=== PATIENT | female | born 1955 | race Caucasian/White ===

== ENCOUNTER 2019-09-09 11:37 | Inpatient (IN) | payer MEDICARE ==
[2019-09-09] MEDS ORDERED: IPRATROPIUM/ALBUTEROL 0.5-2.5 MG/3 ML AMPUL NEB ONE ×2 (12:14→15:03)
[2019-09-09] MEDS ORDERED: METHYLPREDNISOLONE INJ 125 MG/2 ML SDV IV ONE (12:14)
--- NOTE | 2019-09-09 12:37 | RADIOLOGY REPORT (SQ) ---
EXAM DESCRIPTION: CHEST SINGLE VIEW IMAGES COMPLETED DATE/TIME: 09/09/2019 12:26 pm REASON FOR STUDY: COPD exacerbation COMPARISON: None. EXAM PARAMETERS: NUMBER OF VIEWS: One view. TECHNIQUE: Single frontal radiographic view of the chest acquired. RADIATION DOSE: NA LIMITATIONS: None. FINDINGS: LUNGS AND PLEURA: There is bilateral interstitial airspace disease most marked in the lung bases. Superimposed interstitial pneumonitis or edema cannot be excluded. Possible small left effu arabella. MEDIASTINUM AND HILAR STRUCTURES: No masses. Contour normal. HEART AND VASCULAR STRUCTURES: Heart is enlarged. Mild central vascular prominence. BONES: No acute findings. HARDWARE: None in the chest. OTHER: No other significant finding. IMPRESSION: COPD with probable chronic interstitial lung disease. Superimposed interstitial pneumon itis or edema cannot be excluded. TECHNICAL DOCUMENTATION: JOB ID: [id number] 2010 [employer]- All Rights Reserved Reading location - IP/workstation name: [email or web address]
--- NOTE | 2019-09-09 13:12 | ER Document Report ---
Entered by GABRIEL FERNANDEZ SCRIBE 09/09/19 1209 Acting as scribe for:VAISHALI VILLA MD ED Respiratory Problem - General Mode of Arrival: Ambulatory Information source: Patient <VAISHALI VILLA - Last Filed: 09/09/19 14:23> <DARWIN KINCAID - Last Filed: 09/09/19 16:07> - General Stated Complaint: DIFFICULTY BREATHING Time Seen by Provider: 09/09/19 11:52 Primary Care Provider: EMMANUEL KHAN PA-C [Primary Care Provider] - Follow up as needed Notes: This 64 year old female patient presents to the emergency department today with complaints of shortness of breath which began last week. Patient was prescribed doxycycline by an urgent care last week due to "fluid in her lungs". Patient states she currently feels like the last time when she had double pneumonia. She has been coughing quite a bit, and has a thick yellowish sputum. Patient his a history of COPD, severe peripheral vascular disease and does continue to smoke. Patient also has a past medical history of CHF. Patient is normally on 3 L O2 nasal cannula at home, but has increased oxygen requirement now. She did return to the [facility] urgent care, and was sent to the emergency room for further evaluation. Patient reports she moved to this area from [place] about 2 weeks ago, and has not established with a primary care provider. (VAISHALI VILLA) - Related Data Allergies/Adverse Reactions: codeine Allergy (Verified 09/09/19 12:46) erythromycin base Allergy (Verified 09/09/19 12:46) Iodinated Contrast Media Allergy (Verified 09/09/19 12:46) Past Medical History - General Information source: Patient - Social History Smoking Status: Current Every Day Smoker Cigarette use (# per day): Yes - 1/3 ppd Frequency of alcohol use: None Drug Abuse: None Lives with: Family Family History: Reviewed & Not Pertinent - Past Medical History Cardiac Medical History: Reports: Hx Congestive Heart Failure, Hx Coronary Artery Disease, Hx Hypercholesterolemia, Other - Hx Hypotension Pulmonary Medical History: Reports: Hx COPD Past Surgical History: Reports: Hx Hysterectomy, Hx Vascular Surgery - Bilateral fem-pop bypass. Left subclavian artery stent., Other - Brachial artery bypass <VAISAHLI VILLA - Last Filed: 09/09/19 14:23> Review of Systems - Review of Systems Constitutional: denies: Fever EENT: No symptoms reported Cardiovascular: No symptoms reported Respiratory: See HPI, Cough, Hurts to breathe, Short of breath, Sputum, Wheezing Gastrointestinal: No symptoms reported Genitourinary: No symptoms reported Female Genitourinary: No symptoms reported Musculoskeletal: No symptoms reported Skin: No symptoms reported Hematologic/Lymphatic: No symptoms reported Neurological/Psychological: No symptoms reported -: Yes All other systems reviewed and negative <VAISHALI VILLA - Last Filed: 09/09/19 14:23> Physical Exam <VAISHALI VILLA - Last Filed: 09/09/19 14:23> - Vital signs Vitals: Temp Pulse Resp BP Pulse Ox 97.5 F 110 H 18 122/75 95 09/09/19 11:43 09/09/19 11:43 09/09/19 11:43 09/09/19 11:43 09/09/19 11:43 - Notes Notes: Physical Exam: General: Alert, appears much older than stated age. HEENT: Normocephalic. Atraumatic. PERRL. Extraocular movements intact. Oropharynx clear. Neck: Supple. Non-tender. Respiratory: Mild respiratory distress. Patient is a little tachypneic. Wheezing rhonchi bilaterally. Mild retractions. Sputum has a very thick wright-yellow appearance. Cardiovascular: Regular tachycardia. Abdominal: Normal Inspection. Non-tender. No distension. Normal Bowel Sounds. Back: No gross abnormalities. Extremities: Moves all four extremities. Upper extremities: Normal inspection. Normal ROM. Lower extremities: Trace pitting edema to right lower extremity consistent with saphenous vein harvest. Neurological: Normal cognition. AAOx4. Normal speech. Psychological: Normal affect. Normal Mood. Skin: Warm. Dry. Normal color. (VAISHALI VILLA) Course - Laboratory Result Diagrams: 09/09/19 12:00 09/09/19 12:00 - Diagnostic Test Radiology reviewed: Image reviewed, Reports reviewed - Chest x-ray shows COPD with probable chronic interstitial lung disease. Superimposed interstitial pneumonitis or edema cannot be excluded. There is cardiac enlargement with mild central vascular prominence. There are no comparison chest x-rays in the system. - EKG Interpretation by Sc EKG shows normal: Sinus rhythm, [place], Intervals, QRS Complexes. abnormal: ST-T Waves - Anterolateral ST depression Rate: Tachycardia - 104 Voltage: Consistant with LVH P Waves: LAE When compared to previous EKG there are: Previous EKG unavailable - Transfer of Care Care transferred to following provider: Dr. Kincaid <VAISHALI VILLA - Last Filed: 09/09/19 14:23> - Laboratory Result Diagrams: 09/09/19 14:22 09/09/19 12:00 <DARWIN KINCAID - Last Filed: 09/09/19 16:07> - Re-evaluation Re-evalutation: 09/09/19 16:02 MDM Delightful 64 year old female received in handoff from Dr. Villa awaiting some studies. She was seen and examined by me. All 3 cell lines are a bit depressed and it is unclear if this is myelodysplasia or a result of this acute illness she is having. She is showing an increased oxygen requirement - presently 5 liters - and has moderate cardiomegaly on her chest xray. Due to her oxygen requirement and lab abnormalities along with her seemingly failing outpt treatment of either copd exacerbation or cap will consult hopitalist for admission. I have discussed the pt with Jarett Vasquez and he has graciously agreed to see and evaluate for admission. (DARWIN KINCAID) - Vital Signs Vital signs: Temp Pulse Resp BP Pulse Ox 97.9 F 110 H 23 H 121/92 H 95 09/09/19 12:19 09/09/19 11:43 09/09/19 15:01 09/09/19 15:01 09/09/19 15:01 - Laboratory Laboratory results interpreted by me: 09/09/19 09/09/19 09/09/19 12:00 12:00 13:00 WBC RBC Hgb Hct MCV MCH RDW Plt Count Seg Neutrophils % Sodium 136.6 L Chloride 92 L Carbon Dioxide 38 H BUN 22 H Glucose 142 H ALT 37 H NT-Pro-B Natriuret Pep 53248 H Urine Protein 30 H Urine Blood SMALL H 09/09/19 14:22 WBC 3.9 L RBC 2.56 L Hgb 9.4 L Hct 28.5 L MCV 111 H MCH 36.7 H RDW 17.5 H Plt Count 32 L Seg Neutrophils % 82.0 H Sodium Chloride Carbon Dioxide BUN Glucose ALT NT-Pro-B Natriuret Pep Urine Protein Urine Blood - Transfer of Care Notes: 09/09/19 14:12 Patient is receiving breathing treatments. She is on O2 4 L nasal cannula. She is pending sputum Gram stain, CBC, and reevaluation. She prefers to be treated as an outpatient if possible. (VAISHALI VILLA) Critical Care Note - Critical Care Note Total time excluding time spent on procedures (mins): 35 <VAISHALI VILLA - Last Filed: 09/09/19 14:23> Discharge <VAISHALI VILLA - Last Filed: 09/09/19 14:23> - Discharge Admitting Provider: Mandy (Hospitalist) Unit Admitted: Telemetry <DARWIN KINCAID - Last Filed: 09/09/19 16:07> - Discharge Clinical Impression: Acute exacerbation of chronic obstructive pulmonary disease (COPD), Dependence on continuous supplemental oxygen, Tobacco dependence Condition: Stable Disposition: ADMITTED INPATIENT Referrals: EMMANUEL KHAN PA-C [Primary Care Provider] - Follow up as needed I personally performed the services described in the documentation, reviewed and edited the documentation which was dictated to the scribe in my presence, and it accurately records my words and actions.
--- NOTE | 2019-09-09 13:13 | EKG REPORT ---
SEVERITY:- ABNORMAL ECG - SINUS TACHYCARDIA PROBABLE LEFT ATRIAL ABNORMALITY LVH WITH SECONDARY REPOLARIZATION ABNORMALITY ST DEPRESSION, CONSIDER ISCHEMIA, ANT-LAT LDS : Confirmed by: Power Vela MD 09-Sep-2019 13:12:22
[2019-09-09 13:22] LABS: APPEARANCE,URINE SLIGHTLY-CLOUDY; BILIRUBIN,URINE NEGATIVE (NEGATIVE); COLOR,URINE YELLOW; GLUCOSE, URINE NEGATIVE (NEGATIVE); KETONES,URINE NEGATIVE (NEGATIVE); LEUKOCYTE ESTERASE,URINE NEGATIVE (NEGATIVE); NITRITE,URINE NEGATIVE (NEGATIVE); PROTEIN,URINE 30 mg/dL (NEGATIVE); URINE SPECIFIC GRAVITY 1.021; UROBILINOGEN,URINE NEGATIVE mg/dL (<2.0)
[2019-09-09 13:26] LABS: ALBUMIN 4.2 g/dL (3.5-5.0); ALKALINE PHOSPHATASE 82 U/L (38-126); ANION GAP 7 (5-19); ASPARTATE AMINO TRANSFERASE 30 U/L (14-36); BILIRUBIN,DIRECT 0.2 mg/dL (0.0-0.4); BILIRUBIN,TOTAL 0.9 mg/dL (0.2-1.3); BLOOD UREA NITROGEN 22 mg/dL (7-20); CALCIUM 9.7 mg/dL (8.4-10.2); CARBON DIOXIDE 38 mmol/L (22-30); CHLORIDE 92 mmol/L (98-107); GLUCOSE 142 mg/dL (75-110); POTASSIUM 3.6 mmol/L (3.6-5.0); TOTAL PROTEIN 7.1 g/dL (6.3-8.2)
[2019-09-09] MEDS ORDERED: ALBUTEROL SULFATE 0.083% NEB 2.5 MG/3 ML AMPUL NEB ONE (13:33)
[2019-09-09 13:37] LABS: CREATINE KINASE MB 2.71 ng/mL (<4.55)
[2019-09-09 13:49] LABS: TROPONIN I 0.035 ng/mL
[2019-09-09 14:34] LABS: ABSOLUTE LYMPHOCYTES (AUTO) 0.5 10^3/uL (0.5-4.7); ABSOLUTE MONOCYTES (AUTO) 0.1 10^3/uL (0.1-1.4); ABSOLUTE NEUT (AUTO) 3.2 10^3/uL (1.7-8.2); BASOPHILS % (AUTO) 0.3 % (0-2); EOSINOPHILS % (AUTO) 0.3 % (0-6); HEMATOCRIT 28.5 % (36.0-47.0); HEMOGLOBIN 9.4 g/dL (12.0-15.5); LYMPHOCYTES % (AUTO) 13.7 % (13-45); MEAN CORPUSCULAR HEMOGLOBIN 36.7 pg (27.0-33.4); MONOCYTES % (AUTO) 3.7 % (3-13); RED BLOOD COUNT 2.56 10^6/uL (3.72-5.28); RED CELL DISTRIBUTION WIDTH 17.5 % (11.5-14.0); TOTAL CELLS COUNTED % (AUTO) 100 %; WHITE BLOOD COUNT 3.9 10^3/uL (4.0-10.5)
[2019-09-09 14:53] LABS: MEAN CORPUSCULAR VOLUME 111 fl (80-97)
[2019-09-09 14:54] LABS: PLATELET COUNT 32 10^3/uL (150-450)
[2019-09-09 14:58] LABS: ANISOCYTOSIS 1+; PLATELET COMMENT DECREASED; POIKILOCYTOSIS SLIGHT; POLYCHROMASIA SLIGHT; SCHISTOCYTES SLIGHT; TEAR DROP CELLS SLIGHT
[2019-09-09] MEDS ORDERED: TERBUTALINE SULFATE INJ/PF 1 MG/1 ML SDV SUBCUT ONE (15:03)
[2019-09-09] MEDS ORDERED: ACETAMINOPHEN 325 MG TABLET PO ONE (15:31)
[2019-09-09 15:44] LABS: A TYPE INFLUENZA AG NEGATIVE (NEGATIVE); B INFLUENZA AG NEGATIVE (NEGATIVE)
[2019-09-09] MEDS ORDERED: LEVALBUTEROL HCL NEB 1.25 MG/3 ML AMPUL NEB PRN (17:01)
--- NOTE | 2019-09-09 17:30 | PDOC H&P ---
History of Present Illness Admission Date/PCP: 09/09/19 16:38 EMMANUEL KHAN PA-C History of Present Illness: LIZZY REAL is a 64 year old female comes in with a 1 to 2-week history of worsening shortness of breath. Patient states she has been coughing up thick yellow-greenish sputum. States she went to an urgent care last week and was given doxycycline but is no better. Patient states that honestly she has been feeling sick and does not think she recovered from "double pneumonia" that she contracted back in February 2019. Patient has been on home oxygen since May 2019. She states that she uses 3 L nasal cannula. She states that the last time she had to use home oxygen was about 6 years ago for several months and once again that was from pneumonia as well. Patient used to be a 3 pack/day smoker but is now down to about 10 cigarettes/day. Patient's other medical problems consist of difficult atherosclerotic disease. Patient states she has had a subclavian stent x2 she is also had aortic iliac fem pop bypass. . Patient's coagulating operator back in [place] told her to get a coagulating operator here in [place] when she moved here. She moved here from [place] 2 weeks ago, to be closer to her children.. Patient denies ever having congestive heart failure.. She denies ever having a heart attack.. Patient was told by her coagulating operator to never be put on a ventilator, and she states that she and her both have a living will and does not want to be resuscitated. Patient has been made a DNR. Patient will be admitted to the hospital for pulmonary toiletry. Start on IV Zithromax and Rocephin IV Solu-Medrol, Xopenex nebulizer due to tachycardia. I have consulted cardiology to see the patient tomorrow. Patient is to be tested for COVID since she just moved here from [place] 2 weeks ago. Also patient has been around multiple family members, as well as grandchildren. Patient appears to be medically stable to transfer to the floor. Past Medical History Cardiac Medical History: Reports: Coronary Artery Disease, Hyperlipidema, Other - Hx Hypotension Pulmonary Medical History: Reports: Chronic Obstructive Pulmonary Disease (COPD) Malignancy Medical History: Reports: None Psychiatric Medical History: Reports: Tobacco Dependency Past Surgical History Past Surgical History: Reports: Hysterectomy, Vascular Surgery - Bilateral fem- pop bypass. Left subclavian artery stent., Other - Brachial artery bypass Social History Lives with: Family Smoking Status: Current Every Day Smoker - Advance Directive Resuscitation Status: Do Not Resuscitate Family History Family History: Reviewed & Not Pertinent Parental Family History Reviewed: No Children Family History Reviewed: No Sibling(s) Family History Reviewed.: No Medication/Allergy Home Medications: Quetiapine Fumarate [Seroquel 25 mg Tablet] 50 mg PO QHS 09/09/19 Allergies/Adverse Reactions: codeine Allergy (Verified 09/09/19 12:46) erythromycin base Allergy (Verified 09/09/19 12:46) Iodinated Contrast Media Allergy (Verified 09/09/19 12:46) Review of Systems Constitutional: PRESENT: weakness, weight loss - Overall 100 pounds since pneumonia February 2019 according to the patient Cardiovascular: PRESENT: dyspnea on exertion Respiratory: PRESENT: cough, dyspnea, sputum Neurological: ABSENT: abnormal gait, abnormal speech, confusion, dizziness, focal weakness, syncope Psychiatric: ABSENT: anxiety, depression, homidical ideation, suicidal ideation Physical Exam Vital Signs: Temp Pulse Resp BP Pulse Ox 98.4 F 110 H 22 H 115/87 H 96 09/09/19 17:00 09/09/19 11:43 09/09/19 16:01 09/09/19 16:00 09/09/19 16:01 Intake & Output 09/08/19 09/09/19 09/10/19 06:59 06:59 06:59 Weight 46.266 kg General appearance: PRESENT: mild distress - Respiratory Respiratory exam: PRESENT: decreased breath sounds, rhonchi Cardiovascular exam: PRESENT: tachycardia Extremities exam: PRESENT: other - No pedal edema Neurological exam: PRESENT: alert, awake, oriented to person, oriented to place, oriented to time, oriented to situation, CN II-XII grossly intact. ABSENT: motor sensory deficit Psychiatric exam: PRESENT: appropriate affect, normal mood. ABSENT: homicidal ideation, suicidal ideation Results Laboratory Results: 09/09/19 14:22 09/09/19 12:00 09/09/19 09/09/19 09/09/19 12:00 12:00 13:00 WBC Cancelled RBC Cancelled Hgb Cancelled Hct Cancelled MCV Cancelled MCH Cancelled MCHC Cancelled RDW Cancelled Plt Count Cancelled Seg Neutrophils % Cancelled Sodium 136.6 L Potassium 3.6 Chloride 92 L Carbon Dioxide 38 H Anion Gap 7 BUN 22 H Creatinine 0.67 Est GFR ( Amer) > 60 Glucose 142 H Lactic Acid Calcium 9.7 Magnesium 1.6 Total Bilirubin 0.9 AST 30 Alkaline Phosphatase 82 Total Protein 7.1 Albumin 4.2 Urine Color YELLOW Urine Appearance SLIGHTLY-CLOUDY Urine pH 6.0 Ur Specific [place] 1.021 Urine Protein 30 H Urine Glucose (UA) NEGATIVE Urine Ketones NEGATIVE Urine Blood SMALL H Urine Nitrite NEGATIVE Ur Leukocyte Esterase NEGATIVE Urine WBC (Auto) 1 Urine RBC (Auto) 0 09/09/19 09/09/19 14:22 15:42 WBC 3.9 L RBC 2.56 L Hgb 9.4 L Hct 28.5 L MCV 111 H MCH 36.7 H MCHC 33.0 RDW 17.5 H Plt Count 32 L Seg Neutrophils % 82.0 H Sodium Potassium Chloride Carbon Dioxide Anion Gap BUN Creatinine Est GFR ( Amer) Glucose Lactic Acid 1.5 Calcium Magnesium Total Bilirubin AST Alkaline Phosphatase Total Protein Albumin Urine Color Urine Appearance Urine pH Ur Specific [place] Urine Protein Urine Glucose (UA) Urine Ketones Urine Blood Urine Nitrite Ur Leukocyte Esterase Urine WBC (Auto) Urine RBC (Auto) 09/09/19 09/09/19 12:00 12:00 CK-MB (CK-2) 2.71 Troponin I 0.035 NT-Pro-B Natriuret Pep [id number] H Impressions: Chest X-Ray 09/09/19 12:08 IMPRESSION: COPD with probable chronic interstitial lung disease. Superimposed interstitial pneumonitis or edema cannot be excluded. Assessment and Plan - Diagnosis (1) Cardiomegaly Is this a current diagnosis for this admission?: Yes (2) Coronary artery disease Is this a current diagnosis for this admission?: Yes (3) Vascular disease Is this a current diagnosis for this admission?: Yes (4) Acute exacerbation of chronic obstructive pulmonary disease (COPD) Is this a current diagnosis for this admission?: Yes (5) Dependence on continuous supplemental oxygen Is this a current diagnosis for this admission?: Yes (6) Tobacco dependence Is this a current diagnosis for this admission?: Yes - Plan Summary Summary: Patient will be admitted for pulmonary toiletry to include IV antibiotics and IV steroids as well as nebulizer treatments. Patient really has no clinical indication of failure, though she does have an elevated BNP. Patient will be seen in consultation by cardiology. Patient will be tested for COVID 19, though suspicion is low. I am going to put patient on a 81 mg aspirin and 20 mg p.o. of Lasix, in addition to other medications. Patient appears to be medically stable. - Time Time Spent with patient: 35 or more minutes
[2019-09-09] MEDS: FUROSEMIDE 20 MG TABLET PO SCH (17:43)
[2019-09-09] MEDS: AZITHROMYCIN 500 MG in DEXTROSE 5%-WATER 250 ML IV SCH (17:46)
[2019-09-09] MEDS ORDERED: ENOXAPARIN SODIUM INJ 40 MG/0.4 ML DISP.SYRIN SUBCUT SCH (18:00)
[2019-09-09] MEDS ORDERED: HYDRALAZINE HCL INJ/PF 20 MG/1 ML SDV IV PRN (18:16)
[2019-09-09 18:30] LABS: INTERNATIONAL RATION (INR) 1.13; PROTHROMBIN TIME 14.5 SEC (11.4-15.4)
[2019-09-09 18:31] LABS: PARTIAL THROMBOPLASTIN TIME 30.1 SEC (23.5-35.8)
[2019-09-09 18:49] LABS: CREATINE KINASE MB 1.95 ng/mL (<4.55); TROPONIN I 0.036 ng/mL
[2019-09-09] MEDS: METHYLPREDNISOLONE INJ 40 MG/1 ML SDV IV SCH (22:10)
[2019-09-09] MEDS: CEFTRIAXONE 1 GM/D5W RTU 1 GM/50 ML RTUPB IV SCH (22:12)
[2019-09-09] MEDS: QUETIAPINE FUMARATE 25 MG TABLET PO SCH (22:13)
[2019-09-09] MEDS: FAMOTIDINE 20 MG TABLET PO SCH (22:13)
[2019-09-09] MEDS: ACETAMINOPHEN 325 MG TABLET PO PRN (23:55)
[2019-09-10] MEDS: LORAZEPAM INJ 2 MG/1 ML VIAL IV PRN ×2 (02:31→22:28)
[2019-09-10] MEDS: METHYLPREDNISOLONE INJ 40 MG/1 ML SDV IV SCH ×3 (05:09→22:28)
[2019-09-10 05:21] LABS: HEMATOCRIT 27.2 % (36.0-47.0); HEMOGLOBIN 9.2 g/dL (12.0-15.5); MEAN CORPUSCULAR HGB CONC 33.9 g/dL (32.0-36.0); MEAN CORPUSCULAR VOLUME 109 fl (80-97); RED BLOOD COUNT 2.49 10^6/uL (3.72-5.28); RED CELL DISTRIBUTION WIDTH 17.6 % (11.5-14.0)
[2019-09-10 05:22] LABS: PLATELET COUNT 61 10^3/uL (150-450); WHITE BLOOD COUNT 2.7 10^3/uL (4.0-10.5)
[2019-09-10 05:43] LABS: ABSOLUTE LYMPHOCYTES# (MANUAL) 1.1 10^3/uL (0.5-4.7); BASOPHILS % (MANUAL) 0 % (0-2); EOSINOPHILS % (MANUAL) 0 % (0-6); LYMPHOCYTES % (MANUAL) 39 % (13-45); MONOCYTES % (MANUAL) 0 % (3-13); SEGMENTED NEUTROPHILS % (MAN) 60 % (42-78); TOTAL CELLS COUNTED 100
[2019-09-10 05:46] LABS: ANISOCYTOSIS 2+; PLATELET COMMENT DECREASED; POLYCHROMASIA SLIGHT
--- NOTE | 2019-09-10 07:18 | EKG REPORT ---
SEVERITY:- ABNORMAL ECG - SINUS TACHYCARDIA LEFT ATRIAL ABNORMALITY LVH WITH SECONDARY REPOLARIZATION ABNORMALITY BORDERLINE PROLONGED QT INTERVAL : Confirmed by: Power Vela MD 10-Sep-2019 07:17:32
[2019-09-10 07:26] LABS: ANION GAP 9 (5-19); BLOOD UREA NITROGEN 25 mg/dL (7-20); CALCIUM 9.1 mg/dL (8.4-10.2); CARBON DIOXIDE 33 mmol/L (22-30); CHLORIDE 93 mmol/L (98-107); GLUCOSE 157 mg/dL (75-110); POTASSIUM 3.8 mmol/L (3.6-5.0)
[2019-09-10] MEDS: ASPIRIN 81 MG TABLET, ENT COATED PO SCH (09:18)
[2019-09-10] MEDS: FUROSEMIDE 20 MG TABLET PO SCH ×2 (09:18→17:38)
[2019-09-10] MEDS: DOCUSATE SODIUM 100 MG CAPSULE PO SCH (09:18)
[2019-09-10] MEDS: PROMETHAZINE HCL INJ 25 MG/1 ML VIAL IV PRN ×2 (09:18→17:48)
[2019-09-10] MEDS: FAMOTIDINE 20 MG TABLET PO SCH ×2 (09:18→22:28)
[2019-09-10] MEDS: METOPROLOL SUCCINATE 25 MG TAB.SR.24H PO SCH ×2 (09:38→22:28)
[2019-09-10 11:28] LABS: PATH REVIEW PATHOLOGIST REVIEWED
[2019-09-10] MEDS ORDERED: FUROSEMIDE 20 MG TABLET PO ONE (12:00)
[2019-09-10] MEDS: ZINC SULFATE 220 MG CAPSULE PO SCH (12:03)
[2019-09-10] MEDS: ASCORBIC ACID 500 MG TABLET PO SCH ×3 (12:03→23:23)
--- NOTE | 2019-09-10 12:05 | PDOC PROGRESS REPORT ---
Subjective Progress Note for:: 09/10/19 Reason For Visit: COPD EXACERBATION,PNEUMONIA,CARDIOMEGALY,CORONARY 09/10/2019 She was admitted with a COPD exacerbation, respiratory distress, possible pneumonia, suspicion of COVID-19, cardiac disease possible pulmonary edema Physical Exam Vital Signs: Temp Pulse Resp BP Pulse Ox 97.8 F 105 H 18 121/85 98 09/10/19 07:09 09/10/19 07:09 09/10/19 07:09 09/10/19 07:09 09/10/19 07:09 Intake & Output 09/09/19 09/10/19 09/11/19 06:59 06:59 06:59 Intake Total 760 Output Total 300 Balance 460 Weight 46.5 kg 46.5 kg General appearance: PRESENT: mild distress - Basically no change from yesterday Respiratory exam: PRESENT: decreased breath sounds, other - We talked for about 15 minutes concerning how she did last night and how she is feeling today. She was short of breath but able to carry on a conversation Cardiovascular exam: PRESENT: tachycardia Neurological exam: PRESENT: alert, awake, oriented to person, oriented to place, oriented to time, oriented to situation, CN II-XII grossly intact. ABSENT: motor sensory deficit Psychiatric exam: PRESENT: appropriate affect, normal mood. ABSENT: homicidal ideation, suicidal ideation Results Laboratory Results: 09/10/19 04:50 09/10/19 06:56 09/09/19 09/09/19 09/09/19 12:00 12:00 13:00 WBC Cancelled RBC Cancelled Hgb Cancelled Hct Cancelled MCV Cancelled MCH Cancelled MCHC Cancelled RDW Cancelled Plt Count Cancelled Seg Neutrophils % Cancelled Sodium 136.6 L Potassium 3.6 Chloride 92 L Carbon Dioxide 38 H Anion Gap 7 BUN 22 H Creatinine 0.67 Est GFR ( Amer) > 60 Est GFR (Non-Af Amer) Glucose 142 H Lactic Acid Calcium 9.7 Magnesium 1.6 Total Bilirubin 0.9 AST 30 Alkaline Phosphatase 82 C-Reactive Protein Total Protein 7.1 Albumin 4.2 Urine Color YELLOW Urine Appearance SLIGHTLY-CLOUDY Urine pH 6.0 Ur Specific [place] 1.021 Urine Protein 30 H Urine Glucose (UA) NEGATIVE Urine Ketones NEGATIVE Urine Blood SMALL H Urine Nitrite NEGATIVE Ur Leukocyte Esterase NEGATIVE Urine WBC (Auto) 1 Urine RBC (Auto) 0 09/09/19 09/09/19 09/09/19 14:22 15:42 18:06 WBC 3.9 L RBC 2.56 L Hgb 9.4 L Hct 28.5 L MCV 111 H MCH 36.7 H MCHC 33.0 RDW 17.5 H Plt Count 32 L Seg Neutrophils % 82.0 H Sodium Potassium Chloride Carbon Dioxide Anion Gap BUN Creatinine Est GFR ( Amer) Est GFR (Non-Af Amer) Glucose Lactic Acid 1.5 Calcium Magnesium Total Bilirubin AST Alkaline Phosphatase C-Reactive Protein 24.8 H Total Protein Albumin Urine Color Urine Appearance Urine pH Ur Specific [place] Urine Protein Urine Glucose (UA) Urine Ketones Urine Blood Urine Nitrite Ur Leukocyte Esterase Urine WBC (Auto) Urine RBC (Auto) 09/10/19 09/10/19 09/10/19 04:50 04:50 06:56 WBC 2.7 L D RBC 2.49 L Hgb 9.2 L Hct 27.2 L MCV 109 H MCH 37.0 H MCHC 33.9 RDW 17.6 H Plt Count 61 L Seg Neutrophils % Not Reportable Sodium Cancelled 134.9 L Potassium Cancelled 3.8 Chloride Cancelled 93 L Carbon Dioxide Cancelled 33 H Anion Gap Cancelled 9 BUN Cancelled 25 H Creatinine Cancelled 0.81 Est GFR ( Amer) Cancelled > 60 Est GFR (Non-Af Amer) Cancelled Glucose Cancelled 157 H Lactic Acid Calcium Cancelled 9.1 Magnesium Total Bilirubin AST Alkaline Phosphatase C-Reactive Protein Total Protein Albumin Urine Color Urine Appearance Urine pH Ur Specific [place] Urine Protein Urine Glucose (UA) Urine Ketones Urine Blood Urine Nitrite Ur Leukocyte Esterase Urine WBC (Auto) Urine RBC (Auto) 09/09/19 09/09/19 09/09/19 12:00 12:00 18:06 CK-MB (CK-2) 2.71 1.95 Troponin I 0.035 0.036 NT-Pro-B Natriuret Pep [id number] H 09/10/19 09/10/19 04:50 06:56 CK-MB (CK-2) Troponin I NT-Pro-B Natriuret Pep Cancelled [id number] H Impressions: Chest X-Ray 09/09/19 12:08 IMPRESSION: COPD with probable chronic interstitial lung disease. Superimposed interstitial pneumonitis or edema cannot be excluded. Assessment and Plan - Diagnosis (1) Cardiomegaly Is this a current diagnosis for this admission?: Yes (2) Coronary artery disease Is this a current diagnosis for this admission?: Yes (3) Vascular disease Is this a current diagnosis for this admission?: Yes (4) Acute exacerbation of chronic obstructive pulmonary disease (COPD) Is this a current diagnosis for this admission?: Yes (5) Dependence on continuous supplemental oxygen Is this a current diagnosis for this admission?: Yes (6) Tobacco dependence Is this a current diagnosis for this admission?: Yes - Plan Summary Summary: Patient will be admitted for pulmonary toiletry to include IV antibiotics and IV steroids as well as nebulizer treatments. Patient really has no clinical indication of failure, though she does have an elevated BNP. Patient will be seen in consultation by cardiology. Patient will be tested for COVID 19, though suspicion is low. I am going to put patient on a 81 mg aspirin and 20 mg p.o. of Lasix, in addition to other medications. Patient appears to be medically stable. 09/10/2019 Patient is still afebrile 97 8 pulse is anywhere from 105-110 consistently blood pressure 121/85. Oxygen saturations 95 to 98% on 4 L Going to cut her oxygen down to 3 L and see if she can maintain in the low to mid 90s. Patient does use oxygen at home at 3 L White count is gone down a little from 3.9-2.7 platelets of come up somewhat from 32,000-61,000 Troponins are stable 0.036 with no increase CRP is low at 24.8 Renal Functions are stable BNP is gone from 30,000 up to 57,000 Today have increased her Lasix I have added Toprol and Lipitor to her regimen Have gone ahead and added the COVID 19 drugs of choice, zinc Plaquenil vitamin C melatonin. She is already on IV Zithromax COVID 19 test results are pending Explained all this to the patient she understands and agrees with this treatment approach. Clinically patient really does not look any worse than yesterday but by the same token she does not look any better. I want to give her every opportunity to get better. With her phillips cytopenia I feel this is probably viral in nature - Time Time Spent with patient: 35 or more minutes
--- NOTE | 2019-09-10 12:21 | CDI QUERY ---
CDI Query CDI Review: DEAR PROVIDER PLEASE CLARIFY AND DOCUMENT IF PT HAS: ACUTE ON CHRONIC RESPIRATORY FAILURE COPD EXACERBATION ONLY CHRONIC RESPIRATORY FAILURE CLINICAL INDICATORS: HOME O2, now requiring additional O2, nebs, steroids, monitoring
[2019-09-10] MEDS: HYDROXYCHLOROQUINE SULFATE 200 MG TABLET PO SCH (17:37)
[2019-09-10] MEDS: AZITHROMYCIN 500 MG in DEXTROSE 5%-WATER 250 ML IV SCH (17:38)
[2019-09-10] MEDS ORDERED: ATORVASTATIN CALCIUM 20 MG TABLET PO SCH (22:00)
[2019-09-10] MEDS ORDERED: MELATONIN 5 MG TABLET PO SCH (22:00)
[2019-09-10] MEDS: CEFTRIAXONE 1 GM/D5W RTU 1 GM/50 ML RTUPB IV SCH (22:28)
[2019-09-10] MEDS: QUETIAPINE FUMARATE 25 MG TABLET PO SCH (22:29)
[2019-09-11] MEDS: ASCORBIC ACID 500 MG TABLET PO SCH ×3 (06:51→18:08)
[2019-09-11] MEDS: METHYLPREDNISOLONE INJ 40 MG/1 ML SDV IV SCH ×2 (06:51→13:33)
[2019-09-11 08:07] LABS: HEMATOCRIT 26.8 % (36.0-47.0); HEMOGLOBIN 9.1 g/dL (12.0-15.5); MEAN CORPUSCULAR HEMOGLOBIN 37.3 pg (27.0-33.4); MEAN CORPUSCULAR HGB CONC 33.8 g/dL (32.0-36.0); MEAN CORPUSCULAR VOLUME 110 fl (80-97); RED BLOOD COUNT 2.43 10^6/uL (3.72-5.28); RED CELL DISTRIBUTION WIDTH 18.3 % (11.5-14.0)
[2019-09-11 08:20] LABS: ANION GAP 10 (5-19); BLOOD UREA NITROGEN 39 mg/dL (7-20); CALCIUM 8.9 mg/dL (8.4-10.2); CARBON DIOXIDE 30 mmol/L (22-30); CHLORIDE 94 mmol/L (98-107); GLUCOSE 125 mg/dL (75-110); POTASSIUM 4.1 mmol/L (3.6-5.0)
[2019-09-11 08:25] LABS: WHITE BLOOD COUNT 6.7 10^3/uL (4.0-10.5)
[2019-09-11 08:31] LABS: PLATELET COUNT 19 10^3/uL (150-450)
[2019-09-11 08:39] LABS: ABSOLUTE LYMPHOCYTES# (MANUAL) 1.3 10^3/uL (0.5-4.7); ABSOLUTE MONOCYTES # (MANUAL) 0.3 10^3/uL (0.1-1.4); BASOPHILS % (MANUAL) 0 % (0-2); EOSINOPHILS % (MANUAL) 0 % (0-6); LYMPHOCYTES % (MANUAL) 20 % (13-45); MONOCYTES % (MANUAL) 5 % (3-13); SEGMENTED NEUTROPHILS % (MAN) 75 % (42-78); TOTAL CELLS COUNTED 100
[2019-09-11 08:40] LABS: ANISOCYTOSIS 1+; PLATELET COMMENT DECREASED; PLATELET LARGE PRESENT
[2019-09-11 08:41] LABS: HYPOCHROMASIA SLIGHT; POLYCHROMASIA SLIGHT
[2019-09-11] MEDS: ASPIRIN 81 MG TABLET, ENT COATED PO SCH (09:08)
[2019-09-11] MEDS: METOPROLOL SUCCINATE 25 MG TAB.SR.24H PO SCH (09:08)
[2019-09-11] MEDS: FAMOTIDINE 20 MG TABLET PO SCH (09:08)
[2019-09-11] MEDS: ZINC SULFATE 220 MG CAPSULE PO SCH (09:08)
[2019-09-11] MEDS: HYDROXYCHLOROQUINE SULFATE 200 MG TABLET PO SCH ×2 (09:08→18:08)
[2019-09-11] MEDS: DOCUSATE SODIUM 100 MG CAPSULE PO SCH (09:09)
[2019-09-11] MEDS: FUROSEMIDE 20 MG TABLET PO SCH ×2 (09:09→18:08)
--- NOTE | 2019-09-11 13:05 | RADIOLOGY REPORT (SQ) ---
EXAM DESCRIPTION: CHEST SINGLE VIEW IMAGES COMPLETED DATE/TIME: 09/11/2019 12:51 pm REASON FOR STUDY: edema, pneumonia COMPARISON: AP view of the chest from 09/09/2019. EXAM PARAMETERS: NUMBER OF VIEWS: One view. TECHNIQUE: An AP view of the chest was obtained. RADIATION DOSE: NA LIMITATIONS: None. FINDINGS: LUNGS AND PLEURA: No consolidation, pleural effusion or pneumothorax. MEDIASTINUM AND HILAR STRUCTURES: No mediastinal or hilar contour abnormality. HEART AND VASCULAR STRUCTURES: The cardiac silhouette is enlarged. BONES: No acute findings. HARDWARE: Endovascular stent that project above the aortic arch. OTHER: No other finding. IMPRESSION: Cardiomegaly without a superimposed acute cardiopulmonary process. TECHNICAL DOCUMENTATION: JOB ID: [id number] 2010 [employer]- All Rights Reserved Reading location - IP/workstation name: [email or web address]
[2019-09-11] MEDS ORDERED: HYDRALAZINE HCL INJ/PF 20 MG/1 ML SDV IV PRN (14:00)
--- NOTE | 2019-09-11 14:20 | PDOC PROGRESS REPORT ---
Subjective Progress Note for:: 09/11/19 Reason For Visit: COPD EXACERBATION,PNEUMONIA,CARDIOMEGALY,CORONARY 09/11/2019 She was admitted with probable COPD exacerbation, respiratory distress, possible pneumonia, suspicion of COVID-19, cardiac disease Physical Exam Vital Signs: Temp Pulse Resp BP Pulse Ox 98.2 F 53 L 16 108/72 92 09/11/19 07:10 09/11/19 07:10 09/11/19 07:10 09/11/19 07:10 09/11/19 07:10 Intake & Output 09/10/19 09/11/19 09/12/19 06:59 06:59 06:59 Intake Total 760 856 Output Total 300 Balance 460 856 Weight 46.5 kg 46.5 kg General appearance: PRESENT: no acute distress Respiratory exam: PRESENT: clear to auscultation cookie. ABSENT: rales, rhonchi, wheezes Cardiovascular exam: PRESENT: RRR. ABSENT: diastolic murmur, rubs, systolic murmur Neurological exam: PRESENT: alert, awake, oriented to person, oriented to place, oriented to time, oriented to situation, CN II-XII grossly intact. ABSENT: motor sensory deficit Psychiatric exam: PRESENT: flat affect Results Laboratory Results: 09/11/19 07:46 09/11/19 07:46 09/10/19 09/11/19 09/11/19 06:56 07:46 07:46 WBC 6.7 D RBC 2.43 L Hgb 9.1 L Hct 26.8 L MCV 110 H MCH 37.3 H MCHC 33.8 RDW 18.3 H Plt Count 19 L* Seg Neutrophils % Not Reportable Sodium 133.6 L Potassium 4.1 Chloride 94 L Carbon Dioxide 30 Anion Gap 10 BUN 39 H Creatinine 0.90 Est GFR ( Amer) > 60 Glucose 125 H Calcium 8.9 Ferritin 160.00 09/09/19 12:00 Sputum Gram Stain - Final 09/09/19 09/09/19 09/09/19 12:00 12:00 18:06 CK-MB (CK-2) 2.71 1.95 Troponin I 0.035 0.036 NT-Pro-B Natriuret Pep 51164 H 09/10/19 09/10/19 09/11/19 04:50 06:56 07:46 CK-MB (CK-2) Troponin I NT-Pro-B Natriuret Pep Cancelled 56789 H 58719 H Impressions: Chest X-Ray 09/11/19 00:00 IMPRESSION: Cardiomegaly without a superimposed acute cardiopulmonary process. Assessment and Plan - Diagnosis (1) Cardiomegaly Is this a current diagnosis for this admission?: Yes (2) Coronary artery disease Is this a current diagnosis for this admission?: Yes (3) Vascular disease Is this a current diagnosis for this admission?: Yes (4) Acute exacerbation of chronic obstructive pulmonary disease (COPD) Is this a current diagnosis for this admission?: Yes (5) Dependence on continuous supplemental oxygen Is this a current diagnosis for this admission?: Yes (6) Tobacco dependence Is this a current diagnosis for this admission?: Yes - Plan Summary Summary: Patient will be admitted for pulmonary toiletry to include IV antibiotics and IV steroids as well as nebulizer treatments. Patient really has no clinical indication of failure, though she does have an elevated BNP. Patient will be seen in consultation by cardiology. Patient will be tested for COVID 19, though suspicion is low. I am going to put patient on a 81 mg aspirin and 20 mg p.o. of Lasix, in addition to other medications. Patient appears to be medically stable. 09/10/2019 Patient is still afebrile 97 8 pulse is anywhere from 105-110 consistently blood pressure 121/85. Oxygen saturations 95 to 98% on 4 L Going to cut her oxygen down to 3 L and see if she can maintain in the low to mid 90s. Patient does use oxygen at home at 3 L White count is gone down a little from 3.9-2.7 platelets of come up somewhat from 32,000-61,000 Troponins are stable 0.036 with no increase CRP is low at 24.8 Renal Functions are stable BNP is gone from 30,000 up to 57,000 Today have increased her Lasix I have added Toprol and Lipitor to her regimen Have gone ahead and added the COVID 19 drugs of choice, zinc Plaquenil vitamin C melatonin. She is already on IV Zithromax COVID 19 test results are pending Explained all this to the patient she understands and agrees with this treatment approach. Clinically patient really does not look any worse than yesterday but by the same token she does not look any better. I want to give her every opportunity to get better. With her phillips cytopenia I feel this is probably viral in nature 09/11/2019 Important lab findings are platelets are down to 15,000 and BNP has continued to go up to 66,000 Patient does not sound wet at all in fact her lungs are clear patient has no signs of peripheral edema CHest x-ray today shows no signs of interstitial edema. Patient is on Lasix 20 mg p.o. twice daily White count is gone up to 6700 Patient's COVID-19 test is negative, my suspicion was low, however since patient is improving clinically I am going to continue her meds, for COVID-19 Patient's oxygen saturation is probably at her baseline on 3 to 4 L up to as high as 100% Patient's renal functions are increasing slightly but I am going to hold off on adding IV fluids I spoke to patient this morning she stated that she was feeling a little bit better - Time Time Spent with patient: 25-34 minutes
[2019-09-11 16:19] VITALS: BP 111/72
[2019-09-11] MEDS: AZITHROMYCIN 500 MG in DEXTROSE 5%-WATER 250 ML IV SCH (18:06)
[2019-09-11] MEDS: PROMETHAZINE HCL INJ 25 MG/1 ML VIAL IV PRN (19:16)
[2019-09-11] MEDS: ACETAMINOPHEN 325 MG TABLET PO PRN (19:17)
[2019-09-11] MEDS ORDERED: ATROPINE SULFATE INJ 1 MG/10 ML DISP.SYRIN IV ONE (20:02)
[2019-09-11] MEDS ORDERED: MELATONIN 5 MG TABLET PO SCH (22:00)
[2019-09-11] MEDS ORDERED: QUETIAPINE FUMARATE 25 MG TABLET PO SCH (22:00)
[2019-09-14 14:03] LABS: PATH REVIEW PATHOLOGIST REVIEWED
--- NOTE | 2019-09-22 18:43 | Death Summary ---
Summary Date : 09/11/19 Time of :: 20:20 Autopsy: No Resuscitation Status: Do Not Resuscitate Primary Care Provider: Andres Vasquez PAC - Final Diagnosis (1) Cardiomegaly Is this a current diagnosis for this admission?: Yes (2) Coronary artery disease Is this a current diagnosis for this admission?: Yes (3) Vascular disease Is this a current diagnosis for this admission?: Yes (4) Acute exacerbation of chronic obstructive pulmonary disease (COPD) Is this a current diagnosis for this admission?: Yes (5) Dependence on continuous supplemental oxygen Is this a current diagnosis for this admission?: Yes (6) Tobacco dependence Is this a current diagnosis for this admission?: Yes Hospital Course:: Patient was admitted to the hospital on 09/09/2019 with a 1 to 2-week history of worsening shortness of breath. She had been to an urgent care a week ago was given doxycycline but was no better. States that she had contracted "double pneumonia" back in February 2019 and ever since then has been not well. Patient states that since May 2019 she has been on home oxygen, 3 L nasal cannula. Patient states that she had to use oxygen once before about 6 years ago for pneumonia and then also. Patient used to be a 3 pack/day smoker but is now down to 10 cigarettes/day. Patient has had severe vascular disease as well resulting in subclavian stents x2 and a aortic iliac fem pop bypass. 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 Patient will be admitted to the hospital for IV antibiotics including Zithromax and Rocephin as well as IV Solu-Medrol and Xopenex risers. She is also to be tested for COVID virus On 09/10/2019 patient was reevaluated, and appeared to be medically stable I increased her Lasix and also added Toprol and Lipitor to her regimen. Because of her risk of COVID-19 she was placed on zinc, Plaquenil, vitamin C, and melatonin.. She was already on IV Zithromax. On the following day 09/10 patient appeared to be much improved she was sitting comfortably in no respiratory distress. Her COVID-19 test was negative and she was moved to the regular floor. Actually walked by her room at around 1500 hrs. and she was sleeping in no distress. That same day September 11, 2019, I was called at approximately 1920 hours because the patient had been found on the floor by her bed responsive. Patient had called the nurse earlier and was given Phenergan and Tylenol for nausea abdominal pain. Patient's vital signs were weak and she was given normal saline bolus as well as placed on BiPAP. She is heart rate continues to drop into the 30s. I consulted with , and patient was continued to be given supportive measures. Patient was a DNR and therefore nothing much more than IV boluses be given. She at approximately 2020 hrs.. Called the family and met the family at the room and discussed her medical care. It was their wishes that the patient be cremated. Patient had a catastrophic event, likely a massive myocardial infarction, possibly due to her pulmonary strain, secondary to her COPD exacerbation/pneumonia.
== END 2019-09-11 22:59 | DRG 190 ==
LOC: ER 11:37 → EH 16:38 → 5 22:02 → 4N 09-11 12:16
PROVIDERS: ADMIT Internal Medicine; ATTEND Physician Assistant
PROC: 5A09357 Assistance with Respiratory Ventilation, Less than 24 Consecutive Hours, Continuous Positive Airway Pressure (ICD-10-PCS; principal; 2019-09-11)
DX: J44.1 Chronic obstructive pulmonary disease with (acute) exacerbation (principal); I21.9 Acute myocardial infarction, unspecified; I25.10 Atherosclerotic heart disease of native coronary artery without angina pectoris; Z99.81 Dependence on supplemental oxygen; Z66 Do not resuscitate; E78.5 Hyperlipidemia, unspecified; I99.9 Unspecified disorder of circulatory system; I73.9 Peripheral vascular disease, unspecified; I51.7 Cardiomegaly; E78.00 Pure hypercholesterolemia, unspecified; F17.210 Nicotine dependence, cigarettes, uncomplicated; Z79.899 Other long term (current) drug therapy; Z88.6 Allergy status to analgesic agent; Z88.3 Allergy status to other anti-infective agents; Z91.041 Radiographic dye allergy status; Z11.59 Encounter for screening for other viral diseases; Z87.01 Personal history of pneumonia (recurrent)
CPT/HCPCS: 36415; 71045; 80048; 80053; 81001; 82553; 82728; 82962; 83605; 83735; 83880; 84484; 85025; 85610; 85730; 86140; 87040; 87070; 87205; 87635; 87804; 93005; 93010; 94660; 96372; 96374; 99291; J0456; J0696; J2060; J2550; J2920; J2930; J3105; J3490; J7060; J7620